=== PATIENT | male | born 1950 | race Caucasian/White ===

== ENCOUNTER 2023-08-27 12:13 | Emergency (ER) | payer MEDICARE ==
[~2023-08-27] VITALS: Ht 170.2 cm; Wt 70.0 kg
[2023-08-27 12:18] VITALS: O2SAT 98
[2023-08-27] MEDS ORDERED: SODIUM CHLORIDE 0.9% 500 ML IV ONE (12:30)
[2023-08-27 12:38] LABS: BASOPHILS % 0.9 % (0.0-2.0); EOSINOPHILS % 1.6 % (0.0-5.0); HEMATOCRIT. 46.8 % (42.0-52.0); HEMOGLOBIN. 16.5 g/dL (14.0-18.0); LYMPHOCYTES % 33.9 % (20.0-50.0); MEAN CORPUSCULAR HEMOGLOBIN 31.1 pg (28.0-32.0); MEAN CORPUSCULAR HGB CONC 35.3 g/dL (31.0-37.0); MEAN PLATELET VOLUME 8.3 fl (7.4-10.4); MONOCYTES % 8.3 % (2.0-8.0); NEUTROPHILS % 55.3 % (40.0-76.0); PLATELET 212 x1000/uL (130-400); RED BLOOD CELL COUNT 5.31 mill/uL (4.7-6.1); RED CELL DISTRIBUTION WIDTH 12.9 % (11.6-14.6); WHITE BLOOD COUNT 5.2 x1000/uL (4.5-11.0)
[2023-08-27 13:06] LABS: PROTHROMBIN TIME 10.8 sec (9.6-11.0)
[2023-08-27 13:13] LABS: TROPONIN I HIGH SENSITIVITY 17 ng/L (<78)
[2023-08-27 13:48] LABS: CHLORIDE 99 mEq/L (98-107); INDEX HEMOLYSI 3 (1-3); INDEX ICTERIC 1 (1-4); INDEX LIPEMIC 1 (1-3); POTASSIUM 3.7 mEq/L (3.5-5.1); SODIUM 130 mEq/L (136-145)
[2023-08-27 13:58] LABS: ALANINE AMINOTRANSFERASE 41 IU/L (13-61); ALBUMIN 3.7 g/dL (3.4-5.0); ASPARTATE AMINOTRANSFERASE 29 IU/L (15-37); BETA HYDROXYBUTYRATE 0.3 mMol/L (0.0-0.3); BILIRUBIN TOTAL 0.5 mg/dL (0.1-1.0); CARBON DIOXIDE 21 mEq/L (21-32); CREATININE 0.8 mg/dL (0.6-1.3); PROTEIN TOTAL 7.4 g/dL (6.0-8.3); UREA NITROGEN BLOOD 19 mg/dL (7-21)
[2023-08-27 14:49] LABS: TROPONIN I HIGH SENSITIVITY 16 ng/L (<78)
[2023-08-27 15:02] LABS: CALCIUM 8.8 mg/dL (8.5-10.1)
[2023-08-27 15:05] LABS: GLUCOSE 467 mg/dL (70-105)
[2023-08-27] MEDS ORDERED: INSULIN REGULAR (HUMULIN R) 300UNITS/3ML VIAL IV ONE (15:30)
[2023-08-27 15:44] LABS: CLARITY URINE CLEAR (CLEAR); COLOR URINE YELLOW (YELLOW); GLUCOSE URINE 3+ (NEGATIVE); KETONES URINE NEGATIVE (NEGATIVE); LEUKOCYTE ESTERASE URINE NEGATIVE (NEGATIVE); NITRITE URINE NEGATIVE (NEGATIVE); OCCULT BLOOD URINE NEGATIVE (NEGATIVE); PH URINE 5.5 (4.5-8.0); PROTEIN URINE NEGATIVE (NEGATIVE); SPECIFIC GRAVITY URINE 1.039 (1.005-1.030)
[2023-08-27 15:47] LABS: BACTERIA URINE NONE SEEN; RBC URINE NONE SEEN /hpf (0-2); SQUAMOUS EPITHELIAL CELL URINE NONE SEEN /lpf (RARE/1+); WBC URINE NONE SEEN /hpf (0-2); YEAST URINE NONE SEEN
[2023-08-27] MEDS ORDERED: INSULIN REGULAR (HUMULIN R) 300UNITS/3ML VIAL IV NR (18:00)
[2023-08-27 19:18] VITALS: BP 142/83; PULSE 72; RESP 16
== END 2023-08-27 19:20 | disposition home or self-care (01) ==
LOC: ER 12:13
DX: R73.9 Hyperglycemia, unspecified (principal)
CPT/HCPCS: 99284; 96374; 71045; 96361; 80053; 81003; 82010; 82962; 85025; 85610; 86850; 86900; 86901; 84484; 36415; J7040; J1815